=== PATIENT | male | born 1940 | race African-American/Black ===

== ENCOUNTER 2019-06-06 20:50 | Emergency (ER) | payer MEDICARE, BC ==
[~2019-06-06] VITALS: Ht 180.3 cm; Wt 100.0 kg
[2019-06-06 23:14] LABS: BASOPHILS % 0.4 % (0.0-2.0); EOSINOPHILS % 3.7 % (0.0-5.0); HEMATOCRIT. 37.5 % (42.0-52.0); HEMOGLOBIN. 12.6 g/dL (14.0-18.0); LYMPHOCYTES % 20.3 % (20.0-50.0); MEAN CORPUSCULAR HEMOGLOBIN 30.7 pg (28.0-32.0); MEAN CORPUSCULAR VOLUME 91.7 fL (80.0-94.0); MONOCYTES % 7.9 % (2.0-8.0); NEUTROPHILS % 67.7 % (40.0-76.0); PLATELET 157 x1000/uL (130-400); RED CELL DISTRIBUTION WIDTH 14.2 % (11.6-14.6)
[2019-06-06 23:19] LABS: CHLORIDE 107 mEq/L (98-107)
[2019-06-07 02:23] VITALS: BP 146/66
== END 2019-06-07 02:43 | disposition home or self-care (01) ==
LOC: ER 20:50
DX: R05 Cough (principal); M25.562 Pain in left knee; M25.561 Pain in right knee; I10 Essential (primary) hypertension; I67.82 Cerebral ischemia; Z95.2 Presence of prosthetic heart valve
CPT/HCPCS: 36415; 73562; 80048; 93005; 99284

== ENCOUNTER 2022-04-06 17:22 | Emergency (ER) | payer BC, MEDICARE ==
[~2022-04-06] VITALS: Ht 180.3 cm; Wt 98.0 kg
[~2022-04-06 17:22] MED LIST: AMLO1TAB39 PO; EZET10TA13 PO; FENO145 PO; MAX25 PO; NEBI10TA2 PO; ROSU20TA2 PO; WARF-53 PO
[2022-04-06] MEDS ORDERED: SODIUM CHLORIDE 0.9% 1,000 ML IV ONE (18:30)
[2022-04-06] MEDS ORDERED: ACETAMINOPHEN 325MG TABLET PO ONE (18:30)
[2022-04-06 18:46] LABS: BASOPHILS % 0.5 % (0.0-2.0); EOSINOPHILS % 2.4 % (0.0-5.0); HEMATOCRIT. 38.3 % (42.0-52.0); HEMOGLOBIN. 12.7 g/dL (14.0-18.0); LYMPHOCYTES % 19.9 % (20.0-50.0); MEAN CORPUSCULAR HEMOGLOBIN 31.2 pg (28.0-32.0); MEAN CORPUSCULAR VOLUME 94.1 fL (80.0-94.0); MEAN PLATELET VOLUME 9.5 fl (7.4-10.4); MONOCYTES % 9.2 % (2.0-8.0); PLATELET 164 x1000/uL (130-400); RED BLOOD CELL COUNT 4.08 mill/uL (4.7-6.1)
[2022-04-06 18:51] LABS: INR 1.4; PROTHROMBIN TIME 14.8 sec (9.6-11.0)
[2022-04-06 18:56] LABS: CHLORIDE 107 mEq/L (98-107)
[2022-04-06] MEDS ORDERED: POTASSIUM CHLORIDE 20MEQ TABLET SR PO NR (20:15)
[2022-04-06 21:15] LABS: CLARITY URINE CLOUDY (CLEAR); COLOR URINE DARK YELLOW (YELLOW); KETONES URINE TRACE (NEGATIVE); LEUKOCYTE ESTERASE URINE TRACE (NEGATIVE); NITRITE URINE NEGATIVE (NEGATIVE); OCCULT BLOOD URINE NEGATIVE (NEGATIVE); PROTEIN URINE 3+ (NEGATIVE); SPECIFIC GRAVITY URINE 1.018 (1.005-1.030)
[2022-04-06] MEDS ORDERED: CEFTRIAXONE 1 G PREMIX 50 ML IV ONE (21:30)
[2022-04-06] MEDS ORDERED: METRONIDAZOLE 500 MG PREMIX 100 ML IV ONE (21:30)
[2022-04-06] MEDS ORDERED: METR-167 MT (22:28)
[2022-04-06] MEDS ORDERED: AMOX1TAB16 MT (22:28)
[2022-04-06] MEDS ORDERED: METRONIDAZOLE 500 MG PREMIX 100 ML IV NR (22:45)
[2022-04-06 23:57] VITALS: BP 125/80
== END 2022-04-06 23:57 | disposition home or self-care (01) ==
LOC: ER 17:22
DX: K52.9 Noninfective gastroenteritis and colitis, unspecified (principal); N17.9 Acute kidney failure, unspecified; E11.9 Type 2 diabetes mellitus without complications; E78.00 Pure hypercholesterolemia, unspecified; I10 Essential (primary) hypertension; Z98.890 Other specified postprocedural states; Z79.899 Other long term (current) drug therapy
CPT/HCPCS: 36415; 74176; 80053; 81003; 83690; 85025; 85610; 87040; 96361; 96365; 96367; 99284; J0696; J3490; J7030

== ENCOUNTER 2022-06-09 19:48 | Emergency (ER) | payer MEDICARE, OTHER ==
[~2022-06-09] VITALS: Ht 180.3 cm; Wt 98.0 kg
[~2022-06-09 19:48] MED LIST changes: +AMOX1TAB16 MT; +METR-167 MT
[2022-06-09 23:29] LABS: CHLORIDE 106 mEq/L (98-107)
[2022-06-09 23:34] LABS: BASOPHILS % 0.5 % (0.0-2.0); EOSINOPHILS % 1.8 % (0.0-5.0); HEMATOCRIT. 37.7 % (42.0-52.0); HEMOGLOBIN. 12.5 g/dL (14.0-18.0); LYMPHOCYTES % 22.3 % (20.0-50.0); MEAN CORPUSCULAR HEMOGLOBIN 31.2 pg (28.0-32.0); MEAN CORPUSCULAR VOLUME 94.4 fL (80.0-94.0); MEAN PLATELET VOLUME 9.8 fl (7.4-10.4); MONOCYTES % 7.1 % (2.0-8.0); NEUTROPHILS % 68.3 % (40.0-76.0); PLATELET 157 x1000/uL (130-400); RED CELL DISTRIBUTION WIDTH 13.9 % (11.6-14.6)
[2022-06-09 23:43] LABS: INR 3.5; PROTHROMBIN TIME 33.7 sec (9.6-11.0)
[2022-06-10] MEDS ORDERED: VISCOUS LIDOCAINE 2% 15 ML UDC MM STA (00:28)
[2022-06-10] MEDS ORDERED: MAGNESIUM/ALUMINUM HYDROXIDE/SIMETHICONE 30ML UDC PO ONE (00:30)
[2022-06-10] MEDS ORDERED: FAMOTIDINE 20MG/2ML VIAL IV ONE (00:30)
[2022-06-10] MEDS ORDERED: ACETAMINOPHEN 325MG TABLET PO ONE (00:45)
[2022-06-10] MEDS ORDERED: FAMOTIDINE 20MG/2ML VIAL IV NR (01:30)
[2022-06-10 02:35] VITALS: BP 154/71
[2022-06-10 03:35] LABS: CLARITY URINE CLEAR (CLEAR); COLOR URINE YELLOW (YELLOW); KETONES URINE TRACE (NEGATIVE); LEUKOCYTE ESTERASE URINE NEGATIVE (NEGATIVE); NITRITE URINE NEGATIVE (NEGATIVE); OCCULT BLOOD URINE NEGATIVE (NEGATIVE); PROTEIN URINE 3+ (NEGATIVE); SPECIFIC GRAVITY URINE 1.017 (1.005-1.030)
== END 2022-06-10 02:36 | disposition home or self-care (01) ==
LOC: ER 19:48
DX: R07.89 Other chest pain (principal); R06.02 Shortness of breath; E11.9 Type 2 diabetes mellitus without complications; E78.00 Pure hypercholesterolemia, unspecified; I10 Essential (primary) hypertension; Z79.899 Other long term (current) drug therapy
CPT/HCPCS: 36415; 71045; 80053; 81003; 83690; 83880; 84484; 85025; 85610; 93005; 96374; 99285; J3490

== ENCOUNTER 2023-10-02 10:58 | Emergency (ER) | payer BC, MEDICARE ==
[~2023-10-02] VITALS: Ht 172.7 cm; Wt 91.0 kg
[~2023-10-02 10:58] MED LIST changes: -EZET10TA13 PO; +EZET10TA81 PO
[2023-10-02 11:11] VITALS: BP 111/50; PULSE 82; RESP 18; TEMP 98.6; O2SAT 98
[2023-10-02 11:53] LABS: BASOPHILS % 0.5 % (0.0-2.0); EOSINOPHILS % 4.1 % (0.0-5.0); HEMATOCRIT. 36.5 % (42.0-52.0); HEMOGLOBIN. 12.1 g/dL (14.0-18.0); LYMPHOCYTES % 18.5 % (20.0-50.0); MEAN CORPUSCULAR HEMOGLOBIN 28.5 pg (28.0-32.0); MEAN CORPUSCULAR VOLUME 86.3 fL (80.0-94.0); MONOCYTES % 6.5 % (2.0-8.0); NEUTROPHILS % 70.4 % (40.0-76.0); PLATELET 223 x1000/uL (130-400); RED BLOOD CELL COUNT 4.23 mill/uL (4.7-6.1); RED CELL DISTRIBUTION WIDTH 15.1 % (11.6-14.6); WHITE BLOOD COUNT 5.6 x1000/uL (4.5-11.0)
[2023-10-02 12:08] LABS: ALANINE AMINOTRANSFERASE 14 IU/L (10-49); ALBUMIN 4.1 g/dL (3.2-4.8); ASPARTATE AMINOTRANSFERASE 13 IU/L (<34); CALCIUM 9.3 mg/dL (8.7-10.4); CARBON DIOXIDE 29 mEq/L (21-32); CHLORIDE 107 mEq/L (98-107); CREATININE 1.8 mg/dL (0.6-1.3); GLUCOSE 154 mg/dL (70-105); POTASSIUM 3.7 mEq/L (3.5-5.1); SODIUM 140 mEq/L (136-145); TROPONIN I HIGH SENSITIVITY 7 ng/L (3.0-53); UREA NITROGEN BLOOD 32 mg/dL (9-23)
[2023-10-02 16:25] LABS: CLARITY URINE CLEAR (CLEAR); COLOR URINE DARK YELLOW (YELLOW); GLUCOSE URINE NEGATIVE (NEGATIVE); KETONES URINE NEGATIVE (NEGATIVE); LEUKOCYTE ESTERASE URINE NEGATIVE (NEGATIVE); NITRITE URINE NEGATIVE (NEGATIVE); OCCULT BLOOD URINE NEGATIVE (NEGATIVE); PROTEIN URINE 1+ (NEGATIVE); SPECIFIC GRAVITY URINE 1.016 (1.005-1.030)
[2023-10-02 16:50] LABS: BACTERIA URINE 1+
[2023-10-02 16:51] LABS: RBC URINE 0-2 /hpf (0-2); SQUAMOUS EPITHELIAL CELL URINE FEW /lpf (RARE/1+); WBC URINE 0-2 /hpf (0-2)
[2023-10-02] MEDS ORDERED: MAGNESIUM/ALUMINUM HYDROXIDE/SIMETHICONE 30ML UDC PO STA (17:32)
[2023-10-02] MEDS ORDERED: FAMOTIDINE 20MG TABLET PO ONE (17:45)
[2023-10-02] MEDS ORDERED: FAMOTIDINE 20MG TABLET PO NR (22:30)
[2023-10-02] MEDS ORDERED: MAGNESIUM/ALUMINUM HYDROXIDE/SIMETHICONE 30ML UDC PO NR (22:30)
== END 2023-10-02 22:54 | disposition home or self-care (01) ==
LOC: ER 10:58
DX: R10.13 Epigastric pain (principal); E11.9 Type 2 diabetes mellitus without complications; E78.00 Pure hypercholesterolemia, unspecified; I10 Essential (primary) hypertension
CPT/HCPCS: 36415; 74176; 80053; 81003; 82962; 84484; 85025; 93005; 99284

== ENCOUNTER 2023-10-08 21:19 | Emergency (ER) | payer MEDICARE ==
[~2023-10-08] VITALS: Ht 180.3 cm; Wt 93.0 kg
[2023-10-08 21:29] VITALS: BP 159/68; PULSE 84; RESP 14; TEMP 98; O2SAT 98
[2023-10-09] MEDS ORDERED: CEPH500T MT (03:23)
== END 2023-10-09 03:56 | disposition home or self-care (01) ==
LOC: ER 21:19
DX: S81.802A Unspecified open wound, left lower leg, initial encounter (principal); E11.9 Type 2 diabetes mellitus without complications; E78.00 Pure hypercholesterolemia, unspecified; I10 Essential (primary) hypertension; Z79.899 Other long term (current) drug therapy; W57.XXXA Bitten or stung by nonvenomous insect and other nonvenomous arthropods, initial encounter; Y93.89 Activity, other specified; Y92.89 Other specified places as the place of occurrence of the external cause; Y99.8 Other external cause status
CPT/HCPCS: 99281; 99283